=== PATIENT | male | born 1995 | race Hispanic/Latino ===

== ENCOUNTER 2021-09-04 13:50 | Outpatient (CLI) | payer OTHER | END 2021-09-04 13:51 | disposition home or self-care (01) | LOC: BICRAD 13:50 | PROVIDERS: ATTEND Nurse Practitioner Family | DX: L03.115 Cellulitis of right lower limb (principal); R60.0 Localized edema ==

== ENCOUNTER 2022-01-15 13:56 | Outpatient (CLI) | payer OTHER | END 2022-01-15 13:57 | disposition home or self-care (01) | PROVIDERS: ATTEND Nurse Practitioner Family | DX: G80.9 Cerebral palsy, unspecified (principal) ==